=== PATIENT | female | born 1950 | race Caucasian/White ===

== ENCOUNTER 2023-08-21 14:09 | Outpatient (CLI) | payer OTHER | END 2023-08-21 14:10 | disposition home or self-care (01) | LOC: NAV RAD 14:09 | PROVIDERS: ATTEND Nurse Practitioner Family | DX: M79.644 Pain in right finger(s) (principal); M79.645 Pain in left finger(s); M18.12 Unilateral primary osteoarthritis of first carpometacarpal joint, left hand ==